=== PATIENT | female | born 1945 | race Caucasian/White ===

== ENCOUNTER → 2023-11-03 07:33 | Outpatient (REF) | payer MEDICARE, OTHER, SELFPAY ==
[2023-11-03 10:00] LABS: % Basophils 0.9 % (0-2); % Eosinophils 4.8 % (0-6); % Immature Granulocytes 0.2 % (0-0.5); % Lymphocytes 29.3 % (20.5-51.1); % Monocytes 9.3 % (1.7-9.3); % Neutrophils 55.5 % (42.2-75.2); Absolute Eosinophils 0.2 10^3/uL (0-0.7); Absolute Lymphocytes 1.3 10^3/uL (1.2-3.4); Absolute Monocytes 0.4 10^3/uL (0.1-0.6); Absolute Neutrophils 2.5 10^3/uL (1.4-6.5); Hematocrit 41.9 % (37.0-47.0); Hemoglobin 13.8 g/dL (12.0-16.0); Mean Corp Hgb Conc. 32.9 g/dL (33.0-37.0); Mean Corpuscular Hgb 29.5 pg (27.0-31.0); Mean Corpuscular Volume 89.5 fL (81.0-99.0); Mean Platelet Volume 9.2 fL (7.4-10.4); Nucleated Red Blood Cells % 0 %; Platelet Count 247 10^3/uL (130-400); Red Blood Cell Count 4.68 10^6/uL (4.20-5.40); Red Cell Dist. Width 13.4 % (11.5-14.5); White Blood Cell Count 4.4 10^3/uL (4.8-10.8)
[2023-11-03 10:15] LABS: ALT (SGPT) 21 U/L (0-35); AST (SGOT) 21 U/L (14-36); Albumin 3.7 g/dl (3.5-5.0); Alkaline Phosphatase 100 U/L (38-126); Blood Urea Nitrogen 15 mg/dl (7-17); Calcium 8.6 mg/dl (8.4-10.2); Carbon Dioxide 33 mmol/L (22-30); Chloride 106 mmol/L (98-107); Glucose 94 mg/dl (70-99); HDL Cholesterol 68 mg/dl; Magnesium 2.4 mg/dl (1.6-2.3); Sodium 139 mmol/L (135-145); Total Bilirubin 0.4 mg/dl (0.2-1.3); Total Protein 5.8 g/dl (6.3-8.2); Triglyceride 88 mg/dl (10-149); Uric Acid 2.8 mg/dl (2.5-6.2); Very Low Density Lipoprotein 17 mg/dl (0-30); eGFR > 60.00
[2023-11-03 10:20] LABS: LDL Cholesterol, Calculated 87 mg/dl; Total Cholesterol 172 mg/dl (50-199)
[2023-11-03 10:24] LABS: Free T4 1.23 ng/dl (0.78-2.19)
[2023-11-03 10:38] LABS: TSH 2.88 uIU/ml (0.47-4.68)
[2023-11-03 12:40] LABS: Glycohemoglobin (HgbA1c) 5.8 % (4.0-5.6)
== END ==
LOC: HWLAB 07:33
PROVIDERS: ATTENDING PHYSICIAN Internal Medicine; FAMILY PHYSICIAN Family Medicine; REFERRING PHYSICIAN Nurse Practitioner
DX: E78.5 Hyperlipidemia, unspecified (principal); E11.9 Type 2 diabetes mellitus without complications; E78.00 Pure hypercholesterolemia, unspecified; R53.83 Other fatigue; I10 Essential (primary) hypertension; E88.810 Metabolic syndrome
CPT/HCPCS: 36415; 80053; 80061; 83036; 83735; 84439; 84443; 84550; 85025

== ENCOUNTER → 2023-11-27 06:59 | Outpatient (REF) | payer MEDICARE, OTHER, SELFPAY | LOC: DHCBC/DCA 06:59 | PROVIDERS: ATTENDING PHYSICIAN Nurse Practitioner; FAMILY PHYSICIAN Family Medicine | DX: R94.31 Abnormal electrocardiogram [ECG] [EKG] (principal); R06.09 Other forms of dyspnea | CPT/HCPCS: 78452; 93017; A9500; J2785 ==

== ENCOUNTER → 2023-12-11 09:06 | Outpatient (REF) | payer MEDICARE, OTHER, SELFPAY | LOC: DHCBS HW 09:06 | PROVIDERS: ATTENDING PHYSICIAN Nurse Practitioner; FAMILY PHYSICIAN Family Medicine | DX: R00.2 Palpitations (principal); R06.09 Other forms of dyspnea | CPT/HCPCS: 93306 ==

== ENCOUNTER → 2024-02-16 06:30 | Outpatient (REF) | payer MEDICARE, OTHER, SELFPAY ==
[2024-02-16 10:15] LABS: % Basophils 0.5 % (0-2); % Eosinophils 0.8 % (0-6); % Immature Granulocytes 0.3 % (0-0.5); % Lymphocytes 17.2 % (20.5-51.1); % Neutrophils 75.2 % (42.2-75.2); Absolute Eosinophils 0.1 10^3/uL (0-0.7); Absolute Lymphocytes 1.1 10^3/uL (1.2-3.4); Absolute Monocytes 0.4 10^3/uL (0.1-0.6); Absolute Neutrophils 4.7 10^3/uL (1.4-6.5); Hematocrit 42.2 % (37.0-47.0); Hemoglobin 13.5 g/dL (12.0-16.0); Mean Corpuscular Hgb 29.7 pg (27.0-31.0); Mean Corpuscular Volume 92.7 fL (81.0-99.0); Mean Platelet Volume 9.8 fL (7.4-10.4); Nucleated Red Blood Cells % 0 %; Platelet Count 291 10^3/uL (130-400); Red Blood Cell Count 4.55 10^6/uL (4.20-5.40); Red Cell Dist. Width 12.3 % (11.5-14.5); White Blood Cell Count 6.2 10^3/uL (4.8-10.8)
[2024-02-16 10:29] LABS: ALT (SGPT) 28 U/L (0-35); AST (SGOT) 34 U/L (14-36); Albumin 4.1 g/dl (3.5-5.0); Alkaline Phosphatase 85 U/L (38-126); Blood Urea Nitrogen 21 mg/dl (7-17); Calcium 9.5 mg/dl (8.4-10.2); Carbon Dioxide 30 mmol/L (22-30); Chloride 104 mmol/L (98-107); Glucose 108 mg/dl (70-99); HDL Cholesterol 68 mg/dl; Potassium 4.3 mmol/L (3.5-5.1); Sodium 141 mmol/L (135-145); Total Bilirubin 0.4 mg/dl (0.2-1.3); Total Cholesterol 210 mg/dl (50-199); Total Protein 6.5 g/dl (6.3-8.2); eGFR > 60.00
[2024-02-16 10:44] LABS: LDL Cholesterol, Calculated 122 mg/dl; Triglyceride 104 mg/dl (10-149); Very Low Density Lipoprotein 20 mg/dl (0-30)
[2024-02-16 10:59] LABS: Cortisol, Random 0.2 ug/dl; TSH 2.36 uIU/ml (0.47-4.68)
[2024-02-16 11:18] LABS: Hepatitis B Surface Antibody Negative
[2024-02-16 11:59] LABS: Glycohemoglobin (HgbA1c) 5.4 % (4.0-5.6)
[2024-02-18 03:24] LABS: ANA, IgG Reflex to HEp-2 Detected (None Detected)
[2024-02-19 08:44] LABS: ANA, HEp-2, IgG Detected (<1:80)
[2024-02-19 08:48] LABS: ANA Pattern Homogeneous
== END ==
LOC: HWLAB 06:30
PROVIDERS: ATTENDING PHYSICIAN Internal Medicine Rheumatology; FAMILY PHYSICIAN Family Medicine; REFERRING PHYSICIAN Physician Assistant
DX: M35.9 Systemic involvement of connective tissue, unspecified (principal); R53.83 Other fatigue; Z51.81 Encounter for therapeutic drug level monitoring; E78.00 Pure hypercholesterolemia, unspecified; I10 Essential (primary) hypertension; E03.9 Hypothyroidism, unspecified; E11.9 Type 2 diabetes mellitus without complications
CPT/HCPCS: 36415; 80053; 80061; 82533; 83036; 84439; 84443; 85025; 86038; 86706

== ENCOUNTER → 2024-02-28 08:41 | Outpatient (REF) | payer MEDICARE, OTHER, SELFPAY | LOC: HWRAD 08:41 | PROVIDERS: ATTENDING PHYSICIAN Internal Medicine Rheumatology; FAMILY PHYSICIAN Family Medicine | DX: M17.9 Osteoarthritis of knee, unspecified (principal) | CPT/HCPCS: 73560; 73565 ==

== ENCOUNTER → 2024-03-13 14:12 | Outpatient (REF) | payer MEDICARE, OTHER, SELFPAY | LOC: HWRAD 14:12 | PROVIDERS: ATTENDING PHYSICIAN Internal Medicine Rheumatology; FAMILY PHYSICIAN Family Medicine | DX: M79.89 Other specified soft tissue disorders (principal); R22.42 Localized swelling, mass and lump, left lower limb | CPT/HCPCS: 93971 ==

== ENCOUNTER → 2024-03-26 08:30 | Outpatient (REF) | payer MEDICARE, OTHER, SELFPAY ==
[2024-03-26 15:19] LABS: Urine Albumin Negative (Neg - Trace); Urine Bilirubin Negative (Negative); Urine Character Clear (Clear); Urine Color Yellow; Urine Glucose Negative (Negative); Urine Ketone Negative (Negative); Urine Leukocyte 1+ (Negative); Urine Nitrite Negative (Negative); Urine Occult Blood Negative (Negative); Urine Urobilinogen Negative (Neg - 1+)
[2024-03-26 15:31] LABS: Urine Bacteria Moderate (Negative); Urine Mucus Few; Urine Red Blood Cell 0-2 /HPF (0-2); Urine Squamous Cell >30 /LPF (Few)
[2024-03-27 12:02] LABS: Thyroglobulin Antibodies <0.9 IU/mL (0.0-4.0); Thyroid Peroxidase Ab (TPO) <0.3 IU/mL (0.0-9.0)
[2024-03-27 21:23] LABS: Smith/RNP (ENA), IgG 2 Units (0-19)
[2024-03-27 22:01] LABS: SSA 52 (Ro)(ENA) Ab, IgG 2 AU/mL (0-40); SSA 60 (Ro)(ENA) Ab, IgG 0 AU/mL (0-40); SSB (La)(ENA) Ab, IgG 0 AU/mL (0-40)
[2024-03-28 02:12] LABS: ds-DNA Ab, IgG Reflex To Titer 4 IU (0-24)
== END ==
LOC: HWLAB 08:30
PROVIDERS: ATTENDING PHYSICIAN Internal Medicine Rheumatology; FAMILY PHYSICIAN Family Medicine; REFERRING PHYSICIAN Internal Medicine Cardiovascular Disease
DX: M81.0 Age-related osteoporosis without current pathological fracture (principal); R76.8 Other specified abnormal immunological findings in serum
CPT/HCPCS: 36415; 81003; 81015; 86225; 86235; 86376; 86800

== ENCOUNTER → 2024-04-01 15:03 | Outpatient (REF) | payer MEDICARE, OTHER, SELFPAY | LOC: HWRAD 15:03 | PROVIDERS: ATTENDING PHYSICIAN Otolaryngology; FAMILY PHYSICIAN Family Medicine; REFERRING PHYSICIAN Internal Medicine Rheumatology | DX: R51.0 Headache with orthostatic component, not elsewhere classified (principal) | CPT/HCPCS: 70486 ==

== ENCOUNTER 2024-04-10 09:43 | Emergency (ER) | payer MEDICARE, OTHER, SELFPAY ==
[2024-04-10 09:46] VITALS: BP 131/96
[2024-04-10 09:49] VITALS: BP 131/96
[2024-04-10] MEDS: NSS 500 IV (09:56)
[2024-04-10 10:00] VITALS: BP 130/90
[2024-04-10 10:04] LABS: % Basophils 0.5 % (0-2); % Eosinophils 2.8 % (0-6); % Immature Granulocytes 0.2 % (0-0.5); % Lymphocytes 16.3 % (20.5-51.1); % Monocytes 8.5 % (1.7-9.3); % Neutrophils 71.7 % (42.2-75.2); Absolute Eosinophils 0.2 10^3/uL (0-0.7); Absolute Lymphocytes 0.9 10^3/uL (1.2-3.4); Absolute Monocytes 0.5 10^3/uL (0.1-0.6); Absolute Neutrophils 4.1 10^3/uL (1.4-6.5); Hematocrit 40.8 % (37.0-47.0); Hemoglobin 13.3 g/dL (12.0-16.0); Mean Corp Hgb Conc. 32.6 g/dL (33.0-37.0); Mean Corpuscular Volume 89.1 fL (81.0-99.0); Mean Platelet Volume 9.3 fL (7.4-10.4); Nucleated Red Blood Cells % 0 %; Platelet Count 243 10^3/uL (130-400); Red Blood Cell Count 4.58 10^6/uL (4.20-5.40); Red Cell Dist. Width 12.8 % (11.5-14.5); White Blood Cell Count 5.8 10^3/uL (4.8-10.8)
--- NOTE | 2024-04-10 10:08 | ED.GENMED ---
History of Present Illness
<Elin James PA-C - Last Filed: 04/10/24 13:01>
General
Chief Complaint: Cardiac Symptoms
Source: patient
Time Seen by Provider: 04/10/24 09:53
History of Present Illness
History of Present Illness:
79yoF with a history of SVT, hyperlipidemia, and hypothyroidism presenting via EMS for evaluation of palpitations. Symptoms began around 7:30am this morning while she was getting dressed. She states her heart feels like it is beating out of her
chest. She also had diaphoresis at symptom onset. She has a history of SVT for which she takes PRN metoprolol. She did not take her dose of metoprolol this morning because her symptoms felt different than her typical SVT episodes. She states her
symptoms were more intense this morning and that she does not typically have sweating with her episodes. She became worried that she may be having a heart attack so she went to urgent care prior to arrival and was sent to the ED for evaluation.
Patient is otherwise asymptomatic and denies any chest pain, shortness of breath, dizziness, syncope, nausea, vomiting. She had an echocardiogram done in November 2023 which showed an EF of 65%.
Past History
<Elin James PA-C - Last Filed: 04/10/24 13:01>
Past History
ED Past Medical History: Arrthythmia (SVT), Hypercholesterolemia and Hypothyroidism; Negative HTN, IDDM or NIDDM
ED Past Surgical History: Orthopedic (Right total knee replacement one week ago.) and Other (Breast reduction)
Social History
Tobacco: Non-smoker
Alcohol: Occasional
Drug: None
Personal:
Living: with family
Employment: Retired
Family History
Family History: Other (Noncontributory)
Phy Exam
<Elin James PA-C - Last Filed: 04/10/24 13:01>
General Physical Exam
General Presentation: well appearing and no apparent distress
General age: appears stated age
General Skin: warm and dry
General Habitus: normal and elderly
General Mental: alert
Cardiovascular Exam
Cardiovascular Exam: no edema, no murmur and tachycardia (HR in 150s)
Pulmonary Exam
Pulmonary Exam: lungs clear, no respiratory distress, no crackles and no wheezing
Skin Exam
Skin Exam: normal color and warm/dry
Psychiatric Exam
Psychiatric Exam: normal mood/affect
Course
<Elin James PA-C - Last Filed: 04/10/24 13:01>
Orders/Labs/Results
Orders:
Orders
04/10/24 09:46
EKG [Electrocardiogram (*1)] Urgent
Reason for Study: Chest Pain
04/10/24 09:47
EKG- Treatment ONCE
04/10/24 09:51
Adenosine [Adenocard] 6 mg .ROUTE .STK-MED ONE
04/10/24 09:53
Complete Blood Count/With Diff Urgent
Comprehensive Metabolic Panel Urgent
Magnesium Urgent
Prothrombin Time Urgent
TSH Urgent
Comment: ADD ON
Troponin I Urgent
04/10/24 09:55
0.9% Sodium Chloride 500 ml [Nss] 500 ml IV BOLUS
04/10/24 10:06
Add On- LAB Urgent
Tests Added?: magnesium, TSH
Cardiac Monitoring- Treatment ONCE
Metoprolol [Lopressor] 5 mg IV NOW STA
04/10/24 10:15
Electrocardiogram (*1) Urgent
Reason for Study: Tachycardia
EKG- Treatment ONCE
04/10/24 10:21
EKG [Electrocardiogram (*1)] Urgent
Reason for Study: Tachycardia
EKG- Treatment ONCE
Abnormal Lab Results
04/10/24
09:53
MCHC 32.6 L g/dL
(33.0-37.0)
Absolute Lymphs (auto) 0.9 L 10^3/uL
(1.2-3.4)
Lymphocytes % 16.3 L %
(20.5-51.1)
Chloride 108 H mmol/L
(98-107)
Glucose 103 H mg/dl
(70-99)
Total Protein 5.5 L g/dl
(6.3-8.2)
04/10/24 09:53
04/10/24 09:53
Vital Signs
Initial and Last Documented VS:
Initial Vital Signs
Pulse Resp BP
151 14 131/96
04/10/24 09:46 04/10/24 09:46 04/10/24 09:46
Last Documented Vital Signs
Temp Pulse Resp BP Pulse Ox
98.0 F 79 14 125/72 98
04/10/24 09:49 04/10/24 10:45 04/10/24 10:45 04/10/24 10:45 04/10/24 10:00
<Brad Brooks, DO - Last Filed: 04/10/24 13:06>
Orders/Labs/Results
Orders:
Orders
04/10/24 09:46
EKG [Electrocardiogram (*1)] Urgent
Reason for Study: Chest Pain
04/10/24 09:47
EKG- Treatment ONCE
04/10/24 09:51
Adenosine [Adenocard] 6 mg .ROUTE .STK-MED ONE
04/10/24 09:53
Complete Blood Count/With Diff Urgent
Comprehensive Metabolic Panel Urgent
Magnesium Urgent
Prothrombin Time Urgent
TSH Urgent
Comment: ADD ON
Troponin I Urgent
04/10/24 09:55
0.9% Sodium Chloride 500 ml [Nss] 500 ml IV BOLUS
04/10/24 10:06
Add On- LAB Urgent
Tests Added?: magnesium, TSH
Cardiac Monitoring- Treatment ONCE
Metoprolol [Lopressor] 5 mg IV NOW STA
04/10/24 10:15
Electrocardiogram (*1) Urgent
Reason for Study: Tachycardia
EKG- Treatment ONCE
04/10/24 10:21
EKG [Electrocardiogram (*1)] Urgent
Reason for Study: Tachycardia
EKG- Treatment ONCE
Abnormal Lab Results
04/10/24
09:53
MCHC 32.6 L g/dL
(33.0-37.0)
Absolute Lymphs (auto) 0.9 L 10^3/uL
(1.2-3.4)
Lymphocytes % 16.3 L %
(20.5-51.1)
Chloride 108 H mmol/L
(98-107)
Glucose 103 H mg/dl
(70-99)
Total Protein 5.5 L g/dl
(6.3-8.2)
04/10/24 09:53
04/10/24 09:53
Vital Signs
Initial and Last Documented VS:
Initial Vital Signs
Pulse Resp BP
151 14 131/96
04/10/24 09:46 04/10/24 09:46 04/10/24 09:46
Last Documented Vital Signs
Temp Pulse Resp BP Pulse Ox
98.0 F 79 14 125/72 98
04/10/24 09:49 04/10/24 10:45 04/10/24 10:45 04/10/24 10:45 04/10/24 10:00
Sahralt;Elin James PA-C - Last Filed: 04/10/24 13:01>
MDM/Problems Addressed
Differential Diagnosis Includes:
79yoF here with palpitations that began this morning. Associated with diaphoresis. Hx of SVT although patient states this feels different. HR 151 on arrival. BP is stable. She is well appearing in no distress. Differential diagnosis includes but is
not limited to: SVT, atrial flutter, ACS, electrolyte abnormality, thyroid dysfunction
Initial ED plan: EKG shows SVT with nonspecific ST/T wave changes. Check cardiac labs. IV fluid bolus and IV metoprolol as metoprolol typically works for her. Will reassess.
<Elin James PA-C - Last Filed: 04/10/24 13:01>
*EKG
Interpreted by ED Provider?: Yes
EKG Intrepretation Date: 04/10/24
EKG Intrepretation Time: 10:12
Heart Rate: 149
Rate: tachycardiac
Rhythm: SVT
[place]: normal axis
Interval: normal interval
QRS Pattern: normal QRS
Ischemia: non-specific ST changes
*Critical Care Note
Total Time (30-74mins, 75-104mins- exclusive of procedures): Not Applicable
<Elin James PA-C - Last Filed: 04/10/24 13:01>
Update Note
Update Note:
Patient responded well to Lopressor and repeat EKG shows NSR with occasional PVCs and a HR of 75. Labs unremarkable including normal electrolytes and TSH. Troponin <0.012. EKG sent to cardiology (Dr. Ayala) for review. Cardiology recommending
outpatient f/u with her call center rn. Patient is asymptomatic on reassessment and vitals remain normal. She is stable for discharge. Advised close PCP and cardiology f/u. ED return precautions discussed. She was discharged in stable condition.
ED Attending Note
<Elin James PA-C - Last Filed: 04/10/24 13:01>
-
Portions of this chart may have been created with voice recognition software.� Occasional wrong word or��sound alike� substitutions may have occurred due to the inherent limitations of voice recognition software.
<Brad Harmondenhaufen, - Last Filed: 04/10/24 13:06>
ED Attending Note
Patient seen and examined by attending physician: Yes
I performed the substantive portion of visit, reviewed & personally made and approve the management plan that is documented in note by myself or ANICETO.: Yes
I performed a history and physical exam of patient and discussed management with resident, I reviewed resident's note and agree with documented findings and plan of care.: Yes
ED Attending Note:
I evaluated patient at bedside. The patient converted to a sinus rhythm after a dose of Lopressor. Cardiology was informed and reviewed the EKGs.
Discharge Plan
Departure
Patient Disposition: Home (Routine Discharge)
Date of Disposition: 04/10/24
Time of Disposition: 12:05
Patient with high blood pressure during this ER visit?: No
Discharge Problem:
SVT (supraventricular tachycardia)
Instructions: Supraventricular tachycardia (SVT)
Prescriptions:
No Action
atorvastatin 20 MG tablet
20 mg PO QPM
levothyroxine 75 MCG tablet
75 mcg PO DAILY
metoprolol tartrate 50 MG tablet
50 mg PO PRN PRN (Reason: SVT)
Patient Comments:
has never had to take. she was prescribed this mediacation in May. if had svt would take one dose and if it did not break svt then patient would come to ER
ibuprofen [Advil Liqui-Gel] 200 MG capsule
400 mg PO BIDPRN PRN (Reason: arthritic pain)
cholecalciferol (vitamin D3) 2,000 UNITS tablet
2,000 unit PO DAILY
Referrals:
Annie Subramanian MD [Family Provider] -
Kenzie Copeland MD [Active] -
Activity Restrictions/Additional Instructions:
Please call today to schedule a follow-up with your call center rn. Return to the ER with any new or worsening symptoms.
Interventions
Interventions:
*Risk Screen - Suicide Last Done: 04/10/24 09:50
*General Assessment Last Done: 04/10/24 09:50
*Neglect/Abuse Screening Last Done: 04/10/24 09:50
ED- Fall Risk Assessment Last Done: 04/10/24 12:17
*ED COVID-19 Vaccine History Last Done: 04/10/24 09:50
*Nursing Disposition Last Done: 04/10/24 12:17
ED- Pulmonary Assessment Last Done: 04/10/24 09:51
ED- Cardiac Assessment Last Done: 04/10/24 09:51
Discharge Date and Time
Discharge Date/Time: 04/10/24 12:19
Print Language: BULGARIAN
[2024-04-10 10:10] LABS: INR 0.99; PT 13.1 Sec (11.4-14.6)
[2024-04-10] MEDS: LOPRESSOR 5 MG IV (10:11)
[2024-04-10 10:15] VITALS: BP 106/84
[2024-04-10 10:17] LABS: ALT (SGPT) 15 U/L (0-35); AST (SGOT) 18 U/L (14-36); Albumin 3.5 g/dl (3.5-5.0); Alkaline Phosphatase 85 U/L (38-126); Blood Urea Nitrogen 13 mg/dl (7-17); Calcium 8.7 mg/dl (8.4-10.2); Carbon Dioxide 30 mmol/L (22-30); Glucose 103 mg/dl (70-99); Total Bilirubin 0.3 mg/dl (0.2-1.3); Total Protein 5.5 g/dl (6.3-8.2); eGFR > 60.00
[2024-04-10 10:28] LABS: Troponin I < 0.012 ng/ml
[2024-04-10 10:30] VITALS: BP 123/72
[2024-04-10 10:45] VITALS: BP 125/72
[2024-04-10 11:25] LABS: Chloride 108 mmol/L (98-107); Magnesium 2.3 mg/dl (1.6-2.3); Potassium 3.8 mmol/L (3.5-5.1); Sodium 142 mmol/L (135-145)
[2024-04-10 12:17] LABS: TSH 2.15 uIU/ml (0.47-4.68)
== END 2024-04-10 12:19 | disposition home or self-care (01) ==
LOC: EMR 09:43
PROVIDERS: EMERGENCY PHYSICIAN Emergency Medicine; FAMILY PHYSICIAN Family Medicine
DX: I47.10 Supraventricular tachycardia, unspecified (principal); E78.00 Pure hypercholesterolemia, unspecified; E03.9 Hypothyroidism, unspecified
CPT/HCPCS: 99284; 96374; 96361; 80053; 83735; 84443; 84484; 85025; 85610; 93005; J0153

== ENCOUNTER → 2024-05-07 11:03 | Outpatient (REF) | payer MEDICARE, OTHER, SELFPAY ==
[2024-05-07 16:34] LABS: C-Reactive Protein < 5.00 mg/L (0.0-10.00)
[2024-05-07 16:49] LABS: Erythrocyte Sed Rate 18 mm/hour (0-20)
== END ==
LOC: HWLAB 11:03
PROVIDERS: ATTENDING PHYSICIAN Physician Assistant; FAMILY PHYSICIAN Family Medicine
DX: M35.3 Polymyalgia rheumatica (principal); R51.9 Headache, unspecified
CPT/HCPCS: 36415; 85652; 86140

== ENCOUNTER → 2024-05-31 08:43 | Outpatient (REF) | payer MEDICARE, OTHER, SELFPAY ==
[2024-05-31 11:30] LABS: % Basophils 0.8 % (0-2); % Eosinophils 3.4 % (0-6); % Immature Granulocytes 0.4 % (0-0.5); % Lymphocytes 20.8 % (20.5-51.1); % Monocytes 9.5 % (1.7-9.3); % Neutrophils 65.1 % (42.2-75.2); Absolute Eosinophils 0.2 10^3/uL (0-0.7); Absolute Monocytes 0.5 10^3/uL (0.1-0.6); Absolute Neutrophils 3.2 10^3/uL (1.4-6.5); Hematocrit 41.6 % (37.0-47.0); Hemoglobin 13.5 g/dL (12.0-16.0); Mean Corp Hgb Conc. 32.5 g/dL (33.0-37.0); Mean Corpuscular Hgb 28.8 pg (27.0-31.0); Mean Corpuscular Volume 88.7 fL (81.0-99.0); Mean Platelet Volume 9.5 fL (7.4-10.4); Nucleated Red Blood Cells % 0 %; Platelet Count 301 10^3/uL (130-400); Red Blood Cell Count 4.69 10^6/uL (4.20-5.40); Red Cell Dist. Width 13.1 % (11.5-14.5)
[2024-05-31 11:47] LABS: ALT (SGPT) 13 U/L (0-35); AST (SGOT) 20 U/L (14-36); Albumin 3.9 g/dl (3.5-5.0); Alkaline Phosphatase 83 U/L (38-126); Blood Urea Nitrogen 14 mg/dl (7-17); Calcium 9.4 mg/dl (8.4-10.2); Carbon Dioxide 32 mmol/L (22-30); Chloride 102 mmol/L (98-107); Glucose 100 mg/dl (70-99); HDL Cholesterol 51 mg/dl; LDL Cholesterol, Calculated 166 mg/dl; Potassium 4.4 mmol/L (3.5-5.1); Sodium 141 mmol/L (135-145); Total Bilirubin 0.4 mg/dl (0.2-1.3); Total Cholesterol 244 mg/dl (50-199); Triglyceride 139 mg/dl (10-149); Very Low Density Lipoprotein 27 mg/dl (0-30); eGFR > 60.00
[2024-05-31 11:51] LABS: Glycohemoglobin (HgbA1c) 5.4 % (4.0-5.6)
[2024-05-31 12:14] LABS: TSH 1.29 uIU/ml (0.47-4.68)
== END ==
LOC: HWLAB 08:43
PROVIDERS: ATTENDING PHYSICIAN Physician Assistant; FAMILY PHYSICIAN Family Medicine; REFERRING PHYSICIAN Internal Medicine Cardiovascular Disease
DX: E78.00 Pure hypercholesterolemia, unspecified (principal); E11.9 Type 2 diabetes mellitus without complications; E88.810 Metabolic syndrome; R53.83 Other fatigue; I10 Essential (primary) hypertension
CPT/HCPCS: 36415; 80053; 80061; 83036; 84439; 84443; 85025

== ENCOUNTER → 2024-07-08 12:09 | Outpatient (REF) | payer MEDICARE, OTHER, SELFPAY | LOC: HWWDC 12:09 | PROVIDERS: ATTENDING PHYSICIAN Family Medicine | DX: Z12.31 Encounter for screening mammogram for malignant neoplasm of breast (principal) | CPT/HCPCS: 77063; 77067 ==

== ENCOUNTER → 2024-09-27 09:26 | Outpatient (REF) | payer MEDICARE, OTHER, SELFPAY ==
[2024-09-27 12:27] LABS: % Basophils 0.8 % (0-2); % Eosinophils 4.2 % (0-6); % Immature Granulocytes 0.4 % (0-0.5); % Lymphocytes 17.9 % (20.5-51.1); % Monocytes 8.2 % (1.7-9.3); % Neutrophils 68.5 % (42.2-75.2); Absolute Eosinophils 0.2 10^3/uL (0-0.7); Absolute Lymphocytes 0.9 10^3/uL (1.2-3.4); Absolute Monocytes 0.4 10^3/uL (0.1-0.6); Absolute Neutrophils 3.2 10^3/uL (1.4-6.5); Hematocrit 40.3 % (37.0-47.0); Hemoglobin 12.8 g/dL (12.0-16.0); Mean Corp Hgb Conc. 31.8 g/dL (33.0-37.0); Mean Corpuscular Hgb 28.6 pg (27.0-31.0); Mean Platelet Volume 9.9 fL (7.4-10.4); Nucleated Red Blood Cells % 0 %; Platelet Count 265 10^3/uL (130-400); Red Blood Cell Count 4.48 10^6/uL (4.20-5.40); Red Cell Dist. Width 13.5 % (11.5-14.5); White Blood Cell Count 4.7 10^3/uL (4.8-10.8)
[2024-09-27 12:36] LABS: ALT (SGPT) 12 U/L (0-35); AST (SGOT) 20 U/L (14-36); Albumin 3.8 g/dl (3.5-5.0); Alkaline Phosphatase 74 U/L (38-126); Blood Urea Nitrogen 15 mg/dl (7-17); Calcium 8.4 mg/dl (8.4-10.2); Carbon Dioxide 31 mmol/L (22-30); Chloride 102 mmol/L (98-107); Glucose 96 mg/dl (70-99); HDL Cholesterol 51 mg/dl; LDL Cholesterol, Calculated 101 mg/dl; Magnesium 2.3 mg/dl (1.6-2.3); Potassium 4.2 mmol/L (3.5-5.1); Sodium 139 mmol/L (135-145); Total Bilirubin 0.4 mg/dl (0.2-1.3); Total Cholesterol 169 mg/dl (50-199); Triglyceride 89 mg/dl (10-149); Uric Acid 2.7 mg/dl (2.5-6.2); Very Low Density Lipoprotein 17 mg/dl (0-30); eGFR > 60.00
[2024-09-27 12:59] LABS: Glycohemoglobin (HgbA1c) 5.4 % (4.0-5.6)
[2024-09-27 13:11] LABS: TSH 2.32 uIU/ml (0.47-4.68)
== END ==
LOC: HWLAB 09:26
PROVIDERS: ATTENDING PHYSICIAN Internal Medicine; FAMILY PHYSICIAN Family Medicine; REFERRING PHYSICIAN Internal Medicine Rheumatology
DX: E78.00 Pure hypercholesterolemia, unspecified (principal); E11.9 Type 2 diabetes mellitus without complications; E03.9 Hypothyroidism, unspecified; I10 Essential (primary) hypertension
CPT/HCPCS: 36415; 80053; 80061; 83036; 83735; 84439; 84443; 84550; 85025

== ENCOUNTER → 2025-04-28 08:04 | Outpatient (REF) | payer MEDICARE, OTHER, SELFPAY ==
[2025-04-28 10:27] LABS: Hematocrit 40.0 % (37.0-47.0); Hemoglobin 13.0 g/dL (12.0-16.0); Mean Corp Hgb Conc. 32.5 g/dL (33.0-37.0); Mean Corpuscular Volume 89.1 fL (81.0-99.0); Nucleated Red Blood Cells % 0 %; Platelet Count 262 10^3/uL (130-400); Red Cell Dist. Width 13.1 % (11.5-14.5)
[2025-04-28 10:46] LABS: ALT (SGPT) 17 U/L (0-35); AST (SGOT) 23 U/L (14-36); Albumin 4.1 g/dl (3.5-5.0); Alkaline Phosphatase 72 U/L (38-126); Blood Urea Nitrogen 23 mg/dl (7-17); Calcium 8.6 mg/dl (8.4-10.2); Carbon Dioxide 30 mmol/L (22-30); Chloride 105 mmol/L (98-107); Glucose 97 mg/dl (70-99); HDL Cholesterol 39 mg/dl; LDL Cholesterol, Calculated 73 mg/dl; Potassium 4.4 mmol/L (3.5-5.1); Sodium 140 mmol/L (135-145); Total Protein 6.1 g/dl (6.3-8.2); Very Low Density Lipoprotein 19 mg/dl (0-30); eGFR > 60.00
[2025-04-28 10:59] LABS: Vitamin D, 25-OH*** 37.3 ng/mL (30-80)
[2025-04-28 11:12] LABS: TSH 3.61 uIU/ml (0.47-4.68)
[2025-04-28 15:19] LABS: Glycohemoglobin (HgbA1c) 5.4 % (4.0-5.6)
== END ==
LOC: HWLAB 08:04
PROVIDERS: ATTENDING PHYSICIAN Nurse Practitioner Family; FAMILY PHYSICIAN Family Medicine; REFERRING PHYSICIAN Internal Medicine Rheumatology
DX: E07.9 Disorder of thyroid, unspecified (principal); E55.9 Vitamin D deficiency, unspecified; E78.00 Pure hypercholesterolemia, unspecified; E03.9 Hypothyroidism, unspecified; M81.0 Age-related osteoporosis without current pathological fracture; E11.9 Type 2 diabetes mellitus without complications; M15.0 Primary generalized (osteo)arthritis; M17.9 Osteoarthritis of knee, unspecified; Z51.81 Encounter for therapeutic drug level monitoring; Z68.32 Body mass index [BMI] 32.0-32.9, adult
CPT/HCPCS: 36415; 80053; 80061; 82306; 83036; 83525; 84439; 84443; 85025

== ENCOUNTER → 2025-05-22 11:07 | Outpatient (REF) | payer MEDICARE, OTHER, SELFPAY ==
[2025-05-22 12:32] LABS: Hematocrit 40.5 % (37.0-47.0); Hemoglobin 12.9 g/dL (12.0-16.0); Mean Corp Hgb Conc. 31.9 g/dL (33.0-37.0); Mean Corpuscular Volume 88.4 fL (81.0-99.0); Nucleated Red Blood Cells % 0 %; Platelet Count 244 10^3/uL (130-400); Red Cell Dist. Width 13.1 % (11.5-14.5)
[2025-05-22 12:48] LABS: ALT (SGPT) 14 U/L (0-35); AST (SGOT) 19 U/L (14-36); Albumin 4.2 g/dl (3.5-5.0); Alkaline Phosphatase 65 U/L (38-126); Blood Urea Nitrogen 24 mg/dl (7-17); Calcium 9.6 mg/dl (8.4-10.2); Carbon Dioxide 32 mmol/L (22-30); Chloride 103 mmol/L (98-107); Glucose 86 mg/dl (70-99); Magnesium 2.4 mg/dl (1.6-2.3); Potassium 4.7 mmol/L (3.5-5.1); Sodium 140 mmol/L (135-145); Total Protein 6.4 g/dl (6.3-8.2); eGFR 51.43
== END ==
LOC: SDSPAT 11:07
PROVIDERS: ATTENDING PHYSICIAN Internal Medicine Cardiovascular Disease; FAMILY PHYSICIAN Family Medicine; OTHER PHYSICIAN Internal Medicine Cardiovascular Disease
DX: Z01.810 Encounter for preprocedural cardiovascular examination (principal)
CPT/HCPCS: 36415; 80053; 83735; 85025; 93005

== ENCOUNTER 2025-05-26 10:19 | Day surgery (SDC) | payer MEDICARE, OTHER, SELFPAY ==
[2025-05-22 11:59] VITALS: BMI 30.8
--- NOTE | 2025-05-22 12:34 | HPS.HSE ---
Family Physician
-
Family Physician: Annie Subramanian MD
Chief Complaint
-
Supraventricular tachycardia.
History of Present Illness
The patient is a 80 year old female presenting today for supraventricular tachycardia. She does report a history of disturbing palpitations, exertional shortness of breath, increased heart rate, and diaphoresis secondary to this diagnosis.
She was diagnosed with this arrhythmia remotely and has on average, per her recollection, 2 episodes of SVT per year. She is on current pharmacological therapy with Carvedilol and Metoprolol Tartrate as needed. Given her significant symptoms
associated with her arrhythmia, she would like to proceed with an EP study and SVT ablation for more definitive arrhythmia management. She denies any current complaints today such as chest pain, shortness of breath at rest, nausea, vomiting,
diarrhea, lightheadedness, dizziness, sore throat, or fever.
Medical History
Past Medical History
Past Medical History: Reports Other
Additional Past Medical History:
1. Supraventricular tachycardia, pharmacological therapy with Carvedilol and Metoprolol Succinate as needed.
2. Elevated blood pressure without diagnosis of hypertension.
3. Hyperlipidemia.
4. Remote pericarditis.
5. Post-surgical right lower extremity DVT, 2013, treated with Coumadin.
6. Chronic postnasal drip with cough.
7. Diverticulosis.
8. Remote migraines.
9. Hypothyroidism.
10. Fibromyalgia.
11. Osteoarthritis, status post right total knee arthroplasty 2013.
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
13. Osteoporosis.
14. Positive JUDY.
15. Shingles 2008.
16. Seasonal affective disorder.
17. Obesity, BMI 30.7.
Past Surgical History: Reports Other
Additional Past Surgical History:
1. Right total knee arthroplasty.
2. Revision of right total knee arthroplasty.
3. Breast reduction.
4. Colonoscopy.
Social History
Tobacco: Non-smoker
Alcohol: None
Personal:
Living: Alone (in a 2 story home. Her daughter will be staying with her for the first 24 hours after the procedure. )
Family History
Family History: Not pertinent
Allergies / Home Medications
Allergy/Medication List:
Home medications:
1. Carvedilol 6.25 mg p.o. twice a day.
2. Cholecalciferol 2000 units p.o. daily.
3. Prolia 60 mg subcutaneous every 6 months.
4. Zetia 10 mg p.o. daily.
5. Fluoxetine 10 mg p.o. daily.
6. Tylenol 1300 mg p.o. every 12 hours as needed.
7. Levothyroxine 75 mcg p.o. daily.
8. Metoprolol Tartrate 50 mg p.o. daily as needed.
9. Pitavastatin 1 mg p.o. daily.
10. Mounjaro 5 mg subcutaneous on Saturdays.
Allergies: No known allergies.
Review of Systems
-
A 12 point ROS was completed and negative except as noted: Yes
Physical Exam
Vital Signs
Blood pressure 152/85. Heart rate 64. Respirations 18. Pulse ox 97% on room air.
Height 5 feet, 2 inches. Weight 76.2 kg. BMI 30.7.
Physical Exam
General: Well Developed, Well Nourished and No Apparent Distress
HEENT: NormoCephalic, Moist mucous membranes, Atraumatic and PERRLA
Respiratory: Clear
Cardiac: Regular Rhythm
GI: Soft, Non Tender and Non Distended
Musculoskeletal: Normal Gait & Station and Other (Trace edema of bilateral lower extremities. )
Skin: Warm and Dry
Neuro: AO x 3 and Nonfocal/grossly intact
Laboratory Results
-
DIAGNOSTIC STUDIES as of 05/22/2025: White blood cell count 4.9. Hemoglobin 12.9. Platelet count 244,000. Sodium 140. Potassium 4.7. BUN 24. Creatinine 1.1. Glucose 86. Calcium 9.6. Magnesium 2.4. AST 19. ALT 14. Albumin 4.2.
EKG 05/22/2025: Normal sinus rhythm. Low voltage QRS. Inferior infarct, age undetermined.
Echocardiogram 12/11/2023: Mild concentric left ventricular hypertrophy with preserved systolic function. Ejection fraction is 65%. Mildly thickened mitral leaflets with trace mitral regurgitation and normal left atrium. Minimal aortic sclerosis
without stenosis or regurgitation. Normal right heart with pulmonary artery systolic pressure of 35-40 mmHg. Small, probably physiologic pericardial effusion, less apparent than the study of September 2019.
Nuclear stress test 11/27/2023: Normal perfusion imaging. The ejection fraction is >65%. This is a moderate risk study due to the pharmacologic agent used.
Impression/Plan
-
IMPRESSION/PLAN:
1. Supraventricular tachycardia: The patient is in need of an EP study and SVT ablation with Dr. Kyle Copeland on 05/26/2025. The benefits and risks of the procedure have been explained to the patient. The patient understands these risks and
wishes to proceed. She has held her Mounjaro at least 1 week prior to her procedure. She has been advised to hold all medications the morning of her ablation.
2. Recent BUN/Creatinine: The patient's pre-operative BUN and creatinine were noted to be mildly elevated in comparison to prior labs on file. This is likely in the setting of dehydration. The patient was advised to stay hydrated and to minimize
potential NSAID use for osteoarthritic pain. With these measures, her renal function is expected to improve. She can proceed with surgery as planned.
[2025-05-26] VITALS (11 sets, daily range): BP systolic 134–189; BP diastolic 73–94
--- NOTE | 2025-05-26 08:00 | ITS.CL.ABL ---
Lead Slot Technician - Ablation
Ablation
Procedure Report:
ELECTROPHYSIOLOGIC STUDY AND POSSIBLE ABLATION
Procedure Date: May 26, 2025
Primary Care Provider: Dr Annie Subramanian
Primary offset press operator: Dr Kenzie Copeland
INDICATION: Supraventricular tachycardia, palpitations
HISTORY:
She has a longstanding history of SVT.
My review of the electrocardiogram from [facility] emergency department April 10, 2024 finds narrow QRS complex tachycardia with pseudo-R waves in lead V1 and pseudo-S waves in the inferior leads.
She converted with intravenous adenosine.
Echocardiogram 12/11/2023 with mild LVH.� Ejection fraction 65%.� Mildly thickened mitral valve leaflets with trace MR.� Minimal aortic valve sclerosis.� Normal right heart with PA pressure 35 to 40 mmHg.� Small probably physiologic pericardial
effusion apparent since 2019
'Time-out' was called and confirmed.
Presenting rhythm: Sinus rhythm
PROCEDURE:
Ultrasound Guidance with real-time visualization of needle insertion and vessel patency performed by me for femoral venous Vascular Access.
Under real-time US guidance, the needle was advanced with negative pressure into the vein. The needle was seen entering the vessel lumen with a good return of dark red flow, the syringe was removed, non-pulsatile, dark red blood low was noted and
the wire was passed without difficulty, then the needle was removed. US confirmed the wire was in the vein, not going into an artery,
Images were taken and saved for the patient's permanent record. Imaging findings typical femoral venous anatomy. Direct visualization of needle puncture into the femoral vein was observed and recorded.
Multipolar recording catheters were positioned at the HRA, RVA, His bundle and CS (for left atrial recording/mapping).
Mapping, recording and pacing were performed from these sites.
Baseline measurements were recorded and analyzed. Antegrade and retrograde AV fer Wenckebach CLs were obtained.
Programmed electrical stimulation was performed. Premature extrastimuli were delivered from the HRA, CS and RVA catheters.
Burst atrial pacing was also performed from HRA and LA (CS) sites.
SVT at CL = 380 ms was induced. SVT was well-tolerated hemodynamically.
Evidence for typical AV Fer [place] as the tachycardia diagnosis included: (1) A concentric midline atrial activation sequence during SVT, (2) ventricular pacing from the RVA showed earliest retrograde atrial activation to be midline, matching
that seen during SVT, (3) Atrial activation during SVT began within the first 70ms of the QRS complex excluding AVRT and making AT unlikely, (4) Initiation of SVT was dependent on a critical AH interval (slow pathway engagement), (5) Ventricular
pacing at a CL 20-30 ms faster than the SVT CL during the SVT demonstrated advancement of the atrial electrogram to the pacing CL and when pacing was terminated, a V-A-H-V pattern with continuation of SVT was observed practically excluding AT as the
SVT mechanism,
SVT could be terminated by burst ventricular pacing.
Radiofrequency Catheter Ablation:
Following determination of the SVT mechanism, isoproterenol was discontinued and baseline conditions were resumed. [address] 3-D mapping system was used to assist in mapping/targeting ablation site(s.)
The AV fer slow pathway was mapped and targeted with RF energy using a 4 mm contact sensing irrigated mapping/ablation catheter.
Initial targets included area of slow conduction as mapped by the high density created catheter. At this location, RF application resulted in no accelerated junctional rhythms. Several applications were given in and around the suspected target
area without effect. Despite the lack of the expected junctional rhythm, several deep RF lesions were given and therefore programmed electrical stimulation was repeated. The baseline state no SVT could be induced. Isoproterenol was then infused
and again with programmed electrical stimulation no SVT could be induced. Catheters were then in the process of being removed and SVT was induced by the exchange wire.
Then more standard mapping using the 4 mm tip ablation catheter was performed. Ultimately at a site just outside the lip of the coronary sinus anteriorly and somewhat superiorly RF application resulted in nearly immediate accelerated junctional
rhythm. At no point was AV delay or heart block observed. Retrograde junctional - atrial conduction was evaluated during RF application and at no point was VA delay or block observed.
PES stimulation was repeated and there was no evidence of AV fer slow pathway.
After a 15 minute waiting period, stimulation was repeated.
There is no evidence of dual AV fer physiology and no sustained SVT was induced, a marked contrast to the pre-ablation situation.
COMPLICATIONS: None
SUMMARY:
Ultrasound guided vascular access.
EPS with CS catheter
EPS with drug infusion
AVT mapping and ablation
3-D electroanatomical mapping
RECOMMENDATIONS:
Consideration for discharge to home later today once groin hemostasis is assured.
Maintain antihypertensive drug therapy which includes carvedilol. She is on metoprolol as as needed.
Copy to:
Primary Care Provider: Dr Annie Subramanian
Primary offset press operator: Dr Kenzie Copeland
== END 2025-05-26 18:40 | disposition home or self-care (01) ==
LOC: CATH 10:19
PROVIDERS: ATTENDING PHYSICIAN Internal Medicine Cardiovascular Disease; FAMILY PHYSICIAN Family Medicine; OTHER PHYSICIAN Internal Medicine Cardiovascular Disease
DX: I47.10 Supraventricular tachycardia, unspecified (principal); E78.5 Hyperlipidemia, unspecified; R03.0 Elevated blood-pressure reading, without diagnosis of hypertension; I31.9 Disease of pericardium, unspecified; Z86.718 Personal history of other venous thrombosis and embolism; K57.90 Diverticulosis of intestine, part unspecified, without perforation or abscess without bleeding; E03.9 Hypothyroidism, unspecified; E66.9 Obesity, unspecified; F39 Unspecified mood [affective] disorder; I35.8 Other nonrheumatic aortic valve disorders; M19.90 Unspecified osteoarthritis, unspecified site; M79.7 Fibromyalgia; M81.0 Age-related osteoporosis without current pathological fracture; Z68.30 Body mass index [BMI] 30.0-30.9, adult; Z79.890 Hormone replacement therapy; Z79.899 Other long term (current) drug therapy; Z96.651 Presence of right artificial knee joint; Z79.85 Long-term (current) use of injectable non-insulin antidiabetic drugs
CPT/HCPCS: C1732; C1730; C1894; C1766; C1892; 93005; 93623; 93653; C1760

== ENCOUNTER 2025-07-12 10:44 | Emergency (ER) | payer MEDICARE, OTHER, SELFPAY ==
[2025-07-12 10:48] VITALS: BP 173/78
--- NOTE | 2025-07-12 11:43 | ED.GENMED ---
History of Present Illness
<Elin James PA-C - Last Filed: 07/12/25 17:30>
General
Chief Complaint: DVT/Possible Blood Clot
Source: patient
Exam Limitations: none
Time Seen by Provider: 07/12/25 11:24
History of Present Illness
History of Present Illness:
80yoF with a history of SVT s/p ablation, hyperlipidemia, and hypothyroidism presenting for evaluation of an abnormal outpatient venous duplex. Patient has been experiencing right leg swelling and redness since April of this year. She was seen by
her PCP and was told it was likely due to venous insufficiency. She saw orthopedics this week who sent her for a venous duplex which she had completed this morning. She was told by the law writer that the right leg was normal but there was a clot
in her left groin. She was sent to the ED for evaluation. She denies any symptoms on the left leg. No chest pain or shortness of breath. No recent trauma or travel. No history of VTE. She had a cardiac ablation on 05/26/2025 and the right
femoral vein was accessed.
Past History
<Elin James PA-C - Last Filed: 07/12/25 17:30>
Past History
ED Past Medical History: Arrthythmia (SVT), Hypercholesterolemia and Hypothyroidism; Negative HTN, IDDM or NIDDM
ED Past Surgical History: Orthopedic (Right total knee replacement one week ago.) and Other (Breast reduction)
Social History
Tobacco: Non-smoker
Alcohol: Occasional
Drug: None
Personal:
Living: with family
Employment: Retired
Family History
Family History: Other (Noncontributory)
Phy Exam
<Elin James PA-C - Last Filed: 07/12/25 17:30>
General Physical Exam
General Presentation: well appearing and no apparent distress
General Skin: warm and dry
General Habitus: normal and elderly
General Mental: alert
ENT Exam
ENT Exam: normocephalic
Pulmonary Exam
Pulmonary Exam: no respiratory distress
Neurological Exam
Neurological Exam: alert
Avel Coma Scale
Eye Opening: Spontaneous
Verbal Response: Oriented
Motor Response: Obeys Commands
GCS Total Score: 15
Musculoskeletal Exam
Musculoskeletal Exam: other (Edema noted to RLE. Faint erythema consistent with venous stasis, no evidence of cellulitis. LLE is normal to inspection without skin changes or pitting edema. 2+ DP pulses.)
Skin Exam
Skin Exam: normal color and warm/dry
Psychiatric Exam
Psychiatric Exam: normal mood/affect
<SAHIL Tristan Jr.C - Last Filed: 07/12/25 17:28>
Avel Coma Scale
GCS Total Score: 15
Course
<Elin James PA-C - Last Filed: 07/12/25 17:30>
Orders/Labs/Results
Orders:
Orders
07/12/25 11:52
Complete Blood Count/With Diff Urgent
Comprehensive Metabolic Panel Urgent
PTT Urgent
Prothrombin Time Urgent
07/12/25 12:38
Venous Doppler Lwr Ext Bilat [US Periph Venous LOWER Ext Maurice] Urgent
Comment:
Reason For Exam: positive outpatient venous duplex study
07/12/25 17:26
Apixaban [Eliquis] 10 mg PO ONCE ONE
Abnormal Lab Results
07/12/25
11:52
MCHC 31.4 L g/dL
(33.0-37.0)
Absolute Lymphs (auto) 1.0 L 10^3/uL
(1.2-3.4)
Lymphocytes % 16.2 L %
(20.5-51.1)
Carbon Dioxide 31 H mmol/L
(22-30)
BUN 29 H mg/dl
(7-17)
Total Protein 6.1 L g/dl
(6.3-8.2)
07/12/25 11:52
07/12/25 11:52
Vital Signs
Initial and Last Documented VS:
Initial Vital Signs
Temp Pulse Resp BP Pulse Ox
97.8 F 67 16 173/78 97
07/12/25 10:48 07/12/25 10:48 07/12/25 10:48 07/12/25 10:48 07/12/25 10:48
Last Documented Vital Signs
Temp Pulse Resp BP Pulse Ox
97.8 F 67 16 173/76 98
07/12/25 10:48 07/12/25 17:14 07/12/25 17:14 07/12/25 17:14 07/12/25 17:14
<Joe Olson Jr., PA-C - Last Filed: 07/12/25 17:28>
Orders/Labs/Results
Orders:
Orders
07/12/25 11:52
Complete Blood Count/With Diff Urgent
Comprehensive Metabolic Panel Urgent
PTT Urgent
Prothrombin Time Urgent
07/12/25 12:38
Venous Doppler Lwr Ext Bilat [US Periph Venous LOWER Ext Maurice] Urgent
Comment:
Reason For Exam: positive outpatient venous duplex study
07/12/25 17:26
Apixaban [Eliquis] 10 mg PO ONCE ONE
Abnormal Lab Results
07/12/25
11:52
MCHC 31.4 L g/dL
(33.0-37.0)
Absolute Lymphs (auto) 1.0 L 10^3/uL
(1.2-3.4)
Lymphocytes % 16.2 L %
(20.5-51.1)
Carbon Dioxide 31 H mmol/L
(22-30)
BUN 29 H mg/dl
(7-17)
Total Protein 6.1 L g/dl
(6.3-8.2)
07/12/25 11:52
07/12/25 11:52
Vital Signs
Initial and Last Documented VS:
Initial Vital Signs
Temp Pulse Resp BP Pulse Ox
97.8 F 67 16 173/78 97
07/12/25 10:48 07/12/25 10:48 07/12/25 10:48 07/12/25 10:48 07/12/25 10:48
Last Documented Vital Signs
Temp Pulse Resp BP Pulse Ox
97.8 F 67 16 173/76 98
07/12/25 10:48 07/12/25 17:14 07/12/25 17:14 07/12/25 17:14 07/12/25 17:14
<Elin James PA-C - Last Filed: 07/12/25 17:30>
MDM/Problems Addressed
Differential Diagnosis Includes:
80yoF presenting after an abnormal outpatient venous duplex. Had US for R leg swelling but there was reportedly a clot in the L groin. Patient has no symptoms in LLE. No CP/SOB. Differential diagnosis includes: DVT, superficial thrombophlebitis,
venous insufficiency, lymphedema
Initial ED plan: Patient arrived with a disc with US images. This was uploaded to [facility]. Radiology looked at this and saw a thrombus in the L common femoral vein but evaluation in the distal extremity was limited. Will check labs and repeat venous
duplex.
Final assessment: Labs unremarkable including normal hemoglobin and renal function. Case signed out to David Olson pending duplex results. No contraindications to anticoagulation. Will plan to discharge patient on Eliquis. No symptoms to suggest PE.
<Elin James PA-C - Last Filed: 07/12/25 17:30>
*Pulse Oximetry
SaO2: 97
Oxygen Mode of Delivery: Room air
<Joe Olson Jr., PA-C - Last Filed: 07/12/25 17:28>
*Pulse Oximetry
Patient hypoxic: no (98)
*Critical Care Note
Total Time (30-74mins, 75-104mins- exclusive of procedures): Not Applicable
<Joe Olson Jr., PA-C - Last Filed: 07/12/25 17:28>
Update Note
Update Note:
Patient found to have DVT of the left leg of the femoral and common femoral vein. Case was additionally discussed with radiology the feels that proximal extension seems to be less likely. CT scan not indicated at this time. Otherwise patient
started on Eliquis and given proper precautions of anticoagulant use. Stable for discharge return precautions given.
ED Attending Note
<Elin James PA-C - Last Filed: 07/12/25 17:30>
-
Portions of this chart may have been created with voice recognition software.� Occasional wrong word or��sound alike� substitutions may have occurred due to the inherent limitations of voice recognition software.
Discharge Plan
Departure
Patient Disposition: Home (Routine Discharge)
Date of Disposition: 07/12/25
Time of Disposition: 17:26
Patient with high blood pressure during this ER visit?: No
Condition: Good
Covid-19: Not Applicable
Discharge Problem:
DVT (deep venous thrombosis)
Instructions: Deep Vein Thrombosis (Blood Clots in the Legs) (DC)
Prescriptions:
New
Eliquis DVT-PE Treat 30D Start 5 mg (74 tabs) tablets,dose pack
See Rx Instructions .ROUTE .COMPLEX Qty: 74 0RF
Rx Instructions:
orally per package directions
No Action
levothyroxine 75 MCG tablet
75 mcg PO DAILY
metoprolol tartrate 50 MG tablet
50 mg PO PRN PRN (Reason: SVT)
carvedilol 6.25 mg Tablet
6.25 mg PO BID
fluoxetine 10 mg Tablet
10 mg PO DAILY
ezetimibe [Zetia] 10 mg Tablet
10 mg PO DAILY
pitavastatin calcium 1 mg Tablet
1 mg PO DAILY
Mounjaro 5 mg/0.5 mL Pen Injector
5 mg SC SA
Prolia 60 mg/mL Syringe
60 mg SC [id number]
acetaminophen 650 mg Tablet Extended Release
1,300 mg PO Q12H PRN (Reason: pain )
mv,Ca,min-folic acid-vit K1 400-20 mcg Tablet
1 tab PO DAILY
calcium 600 mg Capsule
1,200 mg PO DAILY
bupropion HCl 150 mg Tablet Sustained-Release 12 Hr
150 mg PO DAILY
ketotifen fumarate 0.025 % (0.035 %) Drops
1 drp OPHTHALMIC (EYE) BID PRN (Reason: seasonal allergies)
fluticasone furoate 50 mcg/actuation Blister With Device
50 mcg INHALATION PRN PRN (Reason: season allergies)
Referrals:
Annie Subramanian MD [Family Provider, Family Practice]
Luke Murray DO [Active, Hematology / Oncology] - Follow up in 2-3 days
Activity Restrictions/Additional Instructions:
You came to the emergency department today with concerns of a blood clot. Please take the prescribed Eliquis and follow-up closely with hematology and your primary care doctor. Return for any worsening, new or concerning symptoms.
Interventions
Interventions:
ED-Peripheral Vascular Assessment Last Done: 07/12/25 11:12
Discharge Date and Time
Print Language: AZERI
[2025-07-12 12:02] LABS: Hematocrit 40.4 % (37.0-47.0); Hemoglobin 12.7 g/dL (12.0-16.0); Mean Corp Hgb Conc. 31.4 g/dL (33.0-37.0); Mean Corpuscular Volume 91.6 fL (81.0-99.0); Nucleated Red Blood Cells % 0 %; Platelet Count 224 10^3/uL (130-400); Red Cell Dist. Width 13.4 % (11.5-14.5)
[2025-07-12 12:09] LABS: INR 0.99; PT 13.4 Sec (11.4-14.6)
[2025-07-12 12:10] LABS: APTT 26.7 Sec (23.4-35.0)
[2025-07-12 12:34] LABS: ALT (SGPT) 22 U/L (0-35); AST (SGOT) 21 U/L (14-36); Albumin 3.9 g/dl (3.5-5.0); Alkaline Phosphatase 70 U/L (38-126); Blood Urea Nitrogen 29 mg/dl (7-17); Calcium 9.2 mg/dl (8.4-10.2); Carbon Dioxide 31 mmol/L (22-30); Chloride 104 mmol/L (98-107); Glucose 90 mg/dl (70-99); Potassium 4.6 mmol/L (3.5-5.1); Sodium 136 mmol/L (135-145); Total Protein 6.1 g/dl (6.3-8.2); eGFR > 60.00
[2025-07-12 17:14] VITALS: BP 173/76
[2025-07-12] MEDS: ELIQUIS 10 MG PO (17:37)
== END 2025-07-12 17:49 | disposition home or self-care (01) ==
LOC: EMR 10:44
PROVIDERS: Physician Assistant; EMERGENCY PHYSICIAN Emergency Medicine; FAMILY PHYSICIAN Family Medicine
DX: I82.412 Acute embolism and thrombosis of left femoral vein (principal); E78.00 Pure hypercholesterolemia, unspecified; E03.9 Hypothyroidism, unspecified; Z96.651 Presence of right artificial knee joint; Z98.890 Other specified postprocedural states; Z86.79 Personal history of other diseases of the circulatory system; Z88.8 Allergy status to other drugs, medicaments and biological substances
CPT/HCPCS: 99284; 80053; 85025; 85610; 85730; 93970

== ENCOUNTER → 2025-07-15 12:54 | Outpatient (REF) | payer MEDICARE, OTHER, SELFPAY ==
[2025-07-15 16:20] LABS: Blood Urea Nitrogen 24 mg/dl (7-17); Calcium 9.5 mg/dl (8.4-10.2); Carbon Dioxide 33 mmol/L (22-30); Chloride 101 mmol/L (98-107); Glucose 79 mg/dl (70-99); Potassium 4.9 mmol/L (3.5-5.1); Sodium 139 mmol/L (135-145); eGFR > 60.00
[2025-07-15 16:21] LABS: C-Reactive Protein < 5.00 mg/L (0.0-10.00)
== END ==
LOC: HWLAB 12:54
PROVIDERS: ATTENDING PHYSICIAN Physician Assistant Surgical; FAMILY PHYSICIAN Internal Medicine
DX: Z96.651 Presence of right artificial knee joint (principal); M79.89 Other specified soft tissue disorders
CPT/HCPCS: 36415; 80048; 85652; 86140

== ENCOUNTER → 2025-07-24 12:41 | Outpatient (REF) | payer MEDICARE, OTHER, SELFPAY | LOC: HWWDC 12:41 | PROVIDERS: ATTENDING PHYSICIAN Obstetrics & Gynecology; FAMILY PHYSICIAN Family Medicine | DX: Z12.31 Encounter for screening mammogram for malignant neoplasm of breast (principal) | CPT/HCPCS: 77063; 77067 ==

== ENCOUNTER → 2025-07-24 15:33 | Outpatient (REF) | payer MEDICARE, OTHER, SELFPAY | LOC: RAD 15:33 | PROVIDERS: ATTENDING PHYSICIAN Internal Medicine | DX: I82.412 Acute embolism and thrombosis of left femoral vein (principal); M79.89 Other specified soft tissue disorders | CPT/HCPCS: 74177; Q9967 ==

== ENCOUNTER → 2025-08-12 06:49 | Outpatient (REF) | payer MEDICARE, OTHER, SELFPAY ==
[2025-08-12 07:36] VITALS: BP 181/94; BP_SYST 77
[2025-08-12 07:40] VITALS: BMI 30.4
[2025-08-12 09:10] VITALS: BP 162/70; BP_SYST 70
[2025-08-12 09:15] VITALS: BP 162/70; BP_SYST 67
[2025-08-12 09:20] VITALS: BP 152/80; BP_SYST 61
[2025-08-12 09:30] VITALS: BP 157/78; BP_SYST 62
== END ==
LOC: RADI 06:49
PROVIDERS: ATTENDING PHYSICIAN Internal Medicine Hematology & Oncology; FAMILY PHYSICIAN Family Medicine
DX: R59.0 Localized enlarged lymph nodes (principal)
CPT/HCPCS: 49180; 77012; 88305; 88333; 88341; 88342; 88360; 99152

== ENCOUNTER 2025-08-18 06:40 | Outpatient (RCR) | payer MEDICARE, OTHER, SELFPAY | END 2025-08-18 23:59 | disposition home or self-care (01) | LOC: RPT 06:40 | PROVIDERS: ATTENDING PHYSICIAN Family Medicine | DX: I89.0 Lymphedema, not elsewhere classified (principal); Z73.6 Limitation of activities due to disability; M25.561 Pain in right knee; R26.89 Other abnormalities of gait and mobility | CPT/HCPCS: 97162; 97530 ==

== ENCOUNTER → 2025-08-22 16:26 | Outpatient (REF) | payer MEDICARE, OTHER, SELFPAY | LOC: REG 16:26 | PROVIDERS: ATTENDING PHYSICIAN Internal Medicine Hematology & Oncology; FAMILY PHYSICIAN Family Medicine | DX: C64.1 Malignant neoplasm of right kidney, except renal pelvis (principal) | CPT/HCPCS: 71250 ==

== ENCOUNTER → 2025-09-02 08:30 | Outpatient (REF) | payer MEDICARE, OTHER, SELFPAY ==
[2025-09-02 09:10] VITALS: BP 155/80; BP_SYST 72; BMI 31.7
[2025-09-02] MEDS: ANCEF 10 IV (10:15)
[2025-09-02 10:35] VITALS: BP 145/84; BP_SYST 62
[2025-09-02 10:40] VITALS: BP 153/70; BP_SYST 78
[2025-09-02 10:55] VITALS: BP 149/74; BP_SYST 79
== END ==
LOC: RADI 08:30
PROVIDERS: ATTENDING PHYSICIAN Internal Medicine Hematology & Oncology; FAMILY PHYSICIAN Family Medicine
DX: C64.1 Malignant neoplasm of right kidney, except renal pelvis (principal)
CPT/HCPCS: 36561; 76937; 77001; 99152; 99153; C1788